=== PATIENT | female | born 1940 | race Two or more races ===

== ENCOUNTER 2017-05-18 12:04 | Emergency (ER) | payer MEDICARE, OTHER ==
[~2017-05-18] VITALS: Ht 154.9 cm; Wt 77.6 kg
[2017-05-18 12:09] VITALS: BP 137/71
== END 2017-05-18 13:13 | disposition home or self-care (01) ==
LOC: ER 12:06
DX: L03.115 Cellulitis of right lower limb (principal); Z88.2 Allergy status to sulfonamides; Z88.1 Allergy status to other antibiotic agents
CPT/HCPCS: A4606; Z7610

== ENCOUNTER 2017-06-22 12:41 | Inpatient (IN) | payer MEDICARE, OTHER ==
[~2017-06-22] VITALS: Ht 152.4 cm; Wt 90.3 kg
[2017-06-22] MEDS ORDERED: ACETAMINOPHEN ES 500 MG TABLET ONE (13:17)
[2017-06-22] MEDS ORDERED: FUROSEMIDE 40 MG/4 ML VIAL IV ONE (13:30)
[2017-06-22] MEDS ORDERED: ACETAMINOPHEN ES 500 MG TABLET PO ONE (13:30)
[2017-06-22] MEDS ORDERED: VANCOMYCIN 1 GM in IV D5W 250 ML IV ONE (13:30)
[2017-06-22] MEDS ORDERED: FUROSEMIDE 40 MG/4 ML VIAL ONE (13:47)
[2017-06-22 13:55] LABS: BASOPHILS % (AUTO) 0.3 % (0.0-2.0); EOSINOPHILS # (AUTO) 0.2 /CMM (0.0-0.7); EOSINOPHILS % (AUTO) 2.3 % (0.0-6.0); HEMATOCRIT 34 % (33-45); HEMOGLOBIN 11.5 g/dL (11.5-14.8); LYMPHOCYTES # (AUTO) 1.7 /CMM (0.8-4.8); LYMPHOCYTES % (AUTO) 23.1 % (20.0-44.0); MEAN CORPUSCULAR HEMOGLOBIN 30 PG (26.0-33.0); MEAN CORPUSCULAR HGB CONC 34 g/dl (31.0-36.0); MEAN CORPUSCULAR VOLUME 87 fL (82-100); MONOCYTES # (AUTO) 0.5 /CMM (0.1-1.30); MONOCYTES % (AUTO) 7.3 % (2.0-12.0); PLATELET COUNT (AUTO) 310 /CMM (150-450); RDW COEFFICIENT OF VARIATION 14.9 (11.5-15.0); RED BLOOD CELL COUNT(AUTO) 3.88 MIL/uL (4.0-5.2); WHITE BLOOD COUNT (AUTO) 7.5 K/uL (4.3-11.0)
[2017-06-22 14:11] LABS: CALCIUM, SERUM 9.3 mg/dL (8.5-10.1); CARBON DIOXIDE 27 mmol/L (21-32); CHLORIDE 104 mmol/L (98-107); CREATININE 1.1 mg/dL (0.6-1.3); GLUCOSE 123 mg/dL (74-106); POTASSIUM 3.9 mmol/L (3.5-5.1); SODIUM SERUM 141 mmol/L (136-145); UREA NITROGEN, BLOOD 18 mg/dL (7-18)
[2017-06-22 14:18] LABS: TROPONIN I < 0.017 ng/mL (0.00-0.056)
[2017-06-22 14:26] LABS: ALANINE AMINOTRANSFERASE 27 U/L (12-78); ALBUMIN 3.1 g/dL (3.4-5.0); ALKALINE PHOSPHATASE 105 U/L (46-116); ASPARTATE AMINOTRANSFERASE 21 U/L (15-37); B-TYPE NATRIURETIC PEPTIDE 106 PG/ML (0-125); BILIRUBIN,DIRECT 0.1 mg/dL (0.0-0.2); BILIRUBIN,TOTAL 0.3 mg/dL (0.2-1.0); TOTAL PROTEIN, SERUM 8.5 g/dL (6.4-8.2)
[2017-06-22 15:05] LABS: INR 0.98 (0.85-1.15)
[2017-06-22] MEDS ORDERED: IV NS 0.9% 1,000 ML IV PRN (16:34)
[2017-06-22 16:44] VITALS: BP 116/72
[2017-06-22] MEDS ORDERED: MAGNESIUM HYDROXIDE 30 ML UDC PO PRN (17:00)
[2017-06-22] MEDS ORDERED: ONDANSETRON HCL/PF 4 MG/2 ML VIAL IVP PRN (17:00)
[2017-06-22] MEDS ORDERED: Z GUARD REMEDY 2 OZ OINT TP PRN (17:00)
[2017-06-22] MEDS ORDERED: MAG HYDROX/AL HYDROX/SIMETH 30 ML UDC PO PRN (17:00)
[2017-06-22] MEDS ORDERED: ZOLPIDEM TARTRATE 5 MG TABLET PO PRN (17:00)
[2017-06-22] MEDS ORDERED: ACETAMINOPHEN 325 MG TABLET PO PRN (17:00)
[2017-06-22] MEDS ORDERED: FEE PK DOSING 1 MIN EA MC ONE (17:21)
[2017-06-22] MEDS: HYDROCODONE/APAP 5/325MG 1 EACH TABLET PO PRN ×2 (17:31→21:44)
[2017-06-22] MEDS: ENOXAPARIN SODIUM 40 MG/0.4 ML DISP.SYRIN SQ SCH (19:00)
[2017-06-22] MEDS: CEFTRIAXONE 1 G in IV D5W 50 ML IV SCH (19:21)
[2017-06-22 20:00] VITALS: BP 109/77
[2017-06-22 22:00] VITALS: BP 110/76
[2017-06-23] MEDS: HYDROCODONE/APAP 5/325MG 1 EACH TABLET PO PRN ×4 (02:03→20:44)
[2017-06-23] MEDS: VANCOMYCIN 0.75 GM in IV D5W 250 ML IV SCH ×2 (02:03→15:21)
[2017-06-23 08:00] VITALS: BP 133/92
[2017-06-23 16:00] VITALS: BP 134/66
[2017-06-23] MEDS ORDERED: LACTOBACILLUS RHAMNOSUS GG 1 EACH CAP.SPRINK PO SCH (17:00)
[2017-06-23] MEDS: LACTOBACILLUS RHAMNOSUS GG 1 EACH CAP.SPRINK PO SCH (17:32)
[2017-06-23] MEDS: CEFTRIAXONE 1 G in IV D5W 50 ML IV SCH (17:32)
[2017-06-23 20:00] VITALS: BP 123/79
[2017-06-23] MEDS: ENOXAPARIN SODIUM 40 MG/0.4 ML DISP.SYRIN SQ SCH (20:46)
[2017-06-24] MEDS: VANCOMYCIN 0.75 GM in IV D5W 250 ML IV SCH ×3 (02:00→14:23)
[2017-06-24] MEDS: HYDROCODONE/APAP 5/325MG 1 EACH TABLET PO PRN (04:27)
[2017-06-24 05:13] LABS: CALCIUM, SERUM 8.9 mg/dL (8.5-10.1); CARBON DIOXIDE 33 mmol/L (21-32); CHLORIDE 103 mmol/L (98-107); CREATININE 0.9 mg/dL (0.6-1.3); GLUCOSE 93 mg/dL (74-106); POTASSIUM 4.1 mmol/L (3.5-5.1); SODIUM SERUM 139 mmol/L (136-145); UREA NITROGEN, BLOOD 14 mg/dL (7-18)
[2017-06-24 08:00] VITALS: BP 143/72
[2017-06-24] MEDS: LACTOBACILLUS RHAMNOSUS GG 1 EACH CAP.SPRINK PO SCH ×2 (08:17→17:00)
[2017-06-24 16:07] VITALS: BP 136/69
[2017-06-24] MEDS: CEFTRIAXONE 1 G in IV D5W 50 ML IV SCH (17:07)
== END 2017-06-24 17:40 | disposition home or self-care (01) | DRG 603 ==
LOC: ER 12:45 → TELE 15:40 → MED 21:57
PROVIDERS: ADMIT Internal Medicine; ATTEND Internal Medicine
DX: L03.116 Cellulitis of left lower limb (principal); Z88.2 Allergy status to sulfonamides
CPT/HCPCS: 36415; 80048-TC; 80076-TC; 80202-TC; 83880; 84484-TC; 85025-TC; 85730-TC; 87040-TC; 87081-TC; 93970-TC; A4606; J0696; J1650; J1940; J3370; J7030; J7060; Z7610

== ENCOUNTER 2020-09-02 12:14 | Emergency (ER) | payer MEDICARE, OTHER ==
[~2020-09-02] VITALS: Ht 154.9 cm; Wt 75.3 kg
--- NOTE | 2020-09-02 12:30 | NUR ---
BIB FUR BLENDER FOR EDEMA ON ROBIN LOWER EXT. PT AAOX4, VSS. RR EVEN & UNLABORED. DENIES CP, SOB, DIZZINESS, N/V, WEAKNESS AT THIS TIME. PT SEEN & EVAL BY DR. NINA. PLACED ON POLYMER SCIENTIST. WILL CONT TO MONITOR.
[2020-09-02] MEDS ORDERED: NAPR-1164 PO (13:09)
[2020-09-02] MEDS ORDERED: HYDROCODONE/APAP 5/325MG TABLET ONE (13:24)
[2020-09-02] MEDS ORDERED: HYDROCODONE/APAP 5/325MG TABLET PO ONE (13:30)
--- NOTE | 2020-09-02 13:47 | NUR ---
Patient discharged to home in stable condition. Written and verbal after care instructions given. Patient verbalizes understanding of instruction.
[2020-09-02 13:48] VITALS: BP 128/64
== END 2020-09-02 13:48 | disposition home or self-care (01) ==
LOC: ER 12:14
DX: M19.90 Unspecified osteoarthritis, unspecified site (principal); Z88.2 Allergy status to sulfonamides; Z88.1 Allergy status to other antibiotic agents
CPT/HCPCS: 73564-TC